=== PATIENT | female | born 1995 | race Caucasian/White ===

== ENCOUNTER 2016-12-01 18:33 | Emergency (ER) | payer BC ==
[~2016-12-01] VITALS: Ht 167.6 cm; Wt 71.4 kg
[2016-12-01 18:35] VITALS: TEMP 36.8; Ht 167.6 cm; Wt 71.4 kg
[2016-12-01] MEDS ORDERED: MoRPHine SULFATE 4 MG/ML 1 ML CARP\\VIAL IV STA (18:45)
[2016-12-01] MEDS ORDERED: ETON1IMP2 INTRAD (19:08)
[2016-12-01 19:43] LABS: PREG INTERNAL NEGATIVE QC NEG CLEAR BACKGROUND; PREG INTERNAL POSITIVE QC POS CONTROL LINE
--- NOTE | 2016-12-01 19:54 | DIAGNOSTIC IMAGING REPORT ---
LEFT KNEE 2 VIEWS HISTORY: Left knee pain. FALL/KNEE PAIN COMPARISON: None. FINDINGS: There is no fracture or dislocation. Soft tissues are unremarkable. No radiopaque foreign bodies. No knee effusion. Question of a small lucent expansile lesion within the proximal shaft of the fibula. However, this could be projectional. Regardless, this favors a benign lesion. IMPRESSION: No fractures. Electronically signed by: Gregg Mercado M.D. 12/01/2016 7:52 PM Dictated Date/Time: 12/01/2016 7:51 PM
--- NOTE | 2016-12-01 20:18 | EMERGENCY ROOM VISIT NOTE ---
History First contact with patient: 18:37 Chief Complaint: KNEEPAIN Stated Complaint: FALL/ KNEE PAIN History of Present Illness The patient is a 21 year old female who presents to the Emergency Room via ambulance with complaints of "fall/knee pain". 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 She states that it turned to the side, she rates the pain as a 7/10. During splinting the knee relocated. She notes it was numb, but now it is improving. She points to the anterior inferior portion of the left knee as a location of pain. She denies chance of urgency. Review of Systems A complete 10-point Review of Systems was discussed with the patient, with pertinent positives and negatives listed in the History of Present Illness. All remaining Review of Systems questions can be considered negative unless otherwise specified. Past Medical/Surgical History No pertinent. Family History No pertinent. Social History Smoking Status: Never Smoker Patient lives locally and is a [employer] student. Current/Historical Medications Scheduled Etonogestrel (Nexplanon), 68 MG INTRAD UD Physical Exam Vital Signs Date Time Temp Pulse Resp B/P (MAP) Pulse Ox O2 Delivery O2 Flow Rate FiO2 12/01/16 20:03 72 18 126/91 93 Room Air 12/01/16 18:35 36.8 60 18 125/88 100 Room Air Physical Exam VITAL SIGNS - Vital signs and nursing notes were reviewed. Stable. GENERAL - 21-year-old female appearing her stated age who is in no acute distress. Communicates well with provider and answers questions appropriately. SKIN - Without rashes. Skin overlying the left knee is unremarkable. HEAD - NC/AT. EXTREMITIES - No clubbing or peripheral cyanosis. No pretibial edema present. Limited range of motion in the left knee secondary to pain. There is tenderness to palpation overlying the inferior patellar/lateral knee region. There is no proximal thigh or calf tenderness. +5/5 strength noted in UE/LE bilaterally. Medical Decision & Procedures ER Provider Diagnostic Interpretation: LEFT KNEE 2 VIEWS HISTORY: Left knee pain. FALL/KNEE PAIN COMPARISON: None. FINDINGS: There is no fracture or dislocation. Soft tissues are unremarkable. No radiopaque foreign bodies. No knee effusion. Question of a small lucent expansile lesion within the proximal shaft of the fibula. However, this could be projectional. Regardless, this favors a benign lesion. IMPRESSION: No fractures. Electronically signed by: Gregg Mercado M.D. 12/01/2016 7:52 PM Dictated Date/Time: 12/01/2016 7:51 PM Laboratory Results Test 12/01/16 19:00 Human Chorionic Gonadotropin, Qual NEG (NEG) Medications Administered Medications (Trade) Dose Ordered Sig/Patience Route Start Time Stop Time Status Last Admin Dose Admin Morphine Sulfate (MoRPHine SULFATE INJ) 4 mg NOW STAT IV 12/01/16 18:45 12/01/16 18:47 DC 12/01/16 19:17 4 MG Medical Decision Patient was seen and evaluated as above. She presents to us today with left knee pain. IV access was initiated, and she was given morphine for pain secondary to her degree of pain. She is reevaluated and was feeling better. Ice packs were applied. X-ray reveals no acute fracture. Bony lesion was discussed with the patient, and she is to follow up for this as well as the knee pain. She is to be nonweightbearing until pain-free, and indicates that she will see her orthopedist back home. She was given the number for one here in case she is unable to follow-up. She was given crutches. She was educated upon management. She was given a copy of the x-rays on a disc so that way she may follow-up for the questionable lesion. I suspect it is benign as indicated by the radiologist. The patient indicated she felt comfortable using over-the- counter Tylenol and ibuprofen for pain. She was educated upon worrisome symptoms in which to return, had questions answered prior to discharge, and was discharged home in good condition. I suspect she may have a ligamentous injury , which she was informed upon and is to follow-up with orthopedics. In the evaluation and treatment of this patient, the following differential diagnoses were considered: Patellar Fracture, Tibial Plateau Fracture, Distal Femur Fracture, ACL Injury, PCL Injury, Collateral Ligament Injury, Pes Anserine Bursitis, Maisonneuve Fracture. Impression Primary Impression: Knee pain Departure Information Dispostion Home / Self-Care Condition GOOD Referrals No Doctor, Assigned (PCP) Mitch Jarvis MD Patient Instructions [facility] Additional Instructions You have been treated in the Emergency Department for Knee Pain. You have received pain medicine in the emergency department which impairs your ability to operate a vehicle. It is illegal for you to drive after receiving these medicines. For pain control, you can use the following [id number] medicines (if >12 yo): - Regular strength (325mg/tab) Tylenol (acetaminophen) 2 tabs every 4-6 hours as needed. Do not exceed 12 tablets in a 24 hour period. Avoid taking more than 3 grams (3000 mg) of Tylenol per day. This includes any other sources of acetaminophen you may take on a regular basis. - Regular strength (200 mg/tab) Advil (ibuprofen) 1-2 tabs every 4-6 hours as needed. Do not exceed a dose of 3200 mg per day. If this is a recent injury (<24 hrs), ice can be applied to the area of pain for the first 3 days to help decrease pain and inflammation. Ice massages can be performed by freezing water in a paper cup, peeling back the cup to expose the ice and then massaging over the affected area. You have been provided the number for an Orthopaedic Surgeon. You should call this number as soon as possible to establish a follow-up visit from today's Emergency Department visit. I also recommend follow up regarding the lesion in the leg as we discussed. Keep the knee brace in place until cleared by Orthopedics. Use the crutches you have been provided to keep ALL weight off of the knee until weight bearing is tolerable. Return to the Emergency Department if your current symptoms worsen despite treatment course outlined above. LEFT KNEE 2 VIEWS HISTORY: Left knee pain. FALL/KNEE PAIN COMPARISON: None. FINDINGS: There is no fracture or dislocation. Soft tissues are unremarkable. No radiopaque foreign bodies. No knee effusion. Question of a small lucent expansile lesion within the proximal shaft of the fibula. However, this could be projectional. Regardless, this favors a benign lesion. IMPRESSION: No fractures.
[2016-12-01 21:01] VITALS: BP 138/114; PULSE 76; O2SAT 97
== END 2016-12-01 21:00 | disposition home or self-care (01) ==
LOC: C.EDB 18:35
DX: M25.562 Pain in left knee (principal); M89.9 Disorder of bone, unspecified